=== PATIENT | male | born 1935 | race Caucasian/White ===

== ENCOUNTER 2020-11-11 10:40 | Day surgery (SDC) | payer MEDICARE, OTHER ==
[2020-11-09 12:13] LABS: BASOPHILS 0.6 % (0-2); EOSINOPHILS 2.5 % (0-7); HEMOGLOBIN 14.4 g/dL (13.5-17.5); LYMPHOCYTES 24.7 % (15-50); MCH 31.3 pg (26.0-34.0); MCHC 34.2 g/dL (31.0-37.0); MCV 91.7 fL (80.0-100.0); MEAN PLATELET VOLUME 8.5 fL (7.4-10.4); MONOCYTES 7.7 % (2-11); NEUTROPHILS 64.5 % (40-80); RBC 4.58 10x6/uL (4.20-6.10); RDW 13.8 % (11.5-14.5); WBC 6.3 10x3/uL (4.8-10.8)
[2020-11-09 12:24] LABS: PLATELET COUNT 202 10x3/uL (130-400)
[2020-11-09 12:35] LABS: CALCIUM 9.3 mg/dL (8.5-10.1); CARBON DIOXIDE 28.2 mmol/L (21.0-32.0); CREATININE - SERUM 1.3 mg/dL (0.6-1.3); POTASSIUM - SERUM 4.2 mmol/L (3.5-5.1)
[~2020-11-11] VITALS: Ht 182.9 cm; Wt 99.8 kg
[~2020-11-11 10:40] MED LIST: AMBIEN10 MG PO; BAYER CHEWABLE81 MG PO; FLOMAX0.4 MG PO; FLUTICASONE PRO16 GM NASAL; LYRICA75 MG PO; OMEPRAZOLE20 M1 PO; PIOGLITAZONE15 MG PO; PROSCAR5 MG PO; TRIBENZOR 40-11 EACH PO; ULTRAM50 MG PO; VOLTAREN100 GM TOPICAL; ZYRTEC10 MG PO
[2020-11-11 11:59] VITALS: BP 155/64; Ht 182.9 cm; Wt 99.8 kg
--- NOTE | 2020-11-11 16:13 | NUR ---
PER DR THOMASON, WBAT TOLERATED. DISCUSSED WITH PT AND . IV D/C'D WITH CANNULA INTACT, PRESSURE HELD AND DRSG PLACED. OTHER DISCHARGE INSTRUCTIONS GIVEN AND PT AND VERBALIZED AN UNDERSTANDING. DISCHARGED HOME IN STABLE CONDITION AND WITHOUT C/O
--- NOTE | 2020-11-12 09:03 | OP ---
PATIENT NAME: DOMINICK BLOCK MEDICAL RECORD: [id number] :37 LOCATION:[facility] ADMISSION DATE: SURGEON: JOSE THOMASON DO DATE OF OPERATION: 11/11/2020 PROCEDURE PERFORMED: Removal of hardware of the right proximal tibia. PREOPERATIVE DIAGNOSIS: Painful orthopedic hardware in situ at right tibia. POSTOPERATIVE DIAGNOSIS: Painful orthopedic hardware in situ at right tibia. INDICATIONS: Mr. Block is an 85-year-old male who is having right proximal tibia pain for quite some time. He had an IM nail several years ago. He said that he had pain just right over where the proximal screw was and it was rather prominent. I told him we can remove it and give him some relief. He would be at risk for infection, bleeding, damage to nerves and vessels, need for further surgery, continued pain, blood clots, and even and he signed the consent. SURGEON: Jose Thomason DO. DESCRIPTION OF PROCEDURE: The patient was taken to the operative suite, laid in supine position under general anesthetic, 2 grams Ancef, and sedated and LMA was placed. The right lower extremity was then prepped and draped in sterile fashion. Timeout was performed. Everyone was in agreement with correct side, site, patient and procedure. I then made an incision over where the screw head was on the lateral side. We made blunt dissection down to the screw head. We got the screwdriver and removed the screw using the screwdriver and a hemostat. Then x-ray was taken to ensure that was gone. I then irrigated the site and closed it with 4-0 nylon in a horizontal mattress fashion and injected 1% lidocaine approximately 10 mL in the site. He was then dressed with a sterile dressing, awakened and taken to recovery in stable condition. BLOOD LOSS: Minimal. COMPLICATIONS: None. 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
== END 2020-11-11 16:00 | disposition home or self-care (01) ==
LOC: D.OPS 10:40
PROVIDERS: Anesthesiology; ATTEND Orthopaedic Surgery
DX: T84.84XA Pain due to internal orthopedic prosthetic devices, implants and grafts, initial encounter (principal); S82.91XA Unspecified fracture of right lower leg, initial encounter for closed fracture